=== PATIENT | male | born 1980 | race Caucasian/White ===

== ENCOUNTER 2018-01-17 01:28 | Emergency (ER) | payer OTHER ==
[~2018-01-17] VITALS: Ht 180.3 cm; Wt 85.7 kg
[~2018-01-17 01:28] MED LIST: PENICILLIN VK250 MG PO; PERCOCET PO
[2018-01-17] MEDS ORDERED: AMOXICILLIN 50500 MG PO ×2 (01:39→01:41)
[2018-01-17] MEDS ORDERED: ULTRAM 50MG TAB50 MG PO ×2 (01:39→01:41)
[2018-01-17 01:47] VITALS: BP 126/84
== END 2018-01-17 01:48 | disposition home or self-care (01) ==
LOC: M.ERS 01:28
DX: K02.9 Dental caries, unspecified (principal); F17.210 Nicotine dependence, cigarettes, uncomplicated; Z88.8 Allergy status to other drugs, medicaments and biological substances

== ENCOUNTER 2018-05-14 10:21 | Emergency (ER) | payer OTHER ==
[~2018-05-14] VITALS: Ht 180.3 cm; Wt 83.1 kg
[~2018-05-14 10:21] MED LIST changes: +AMOXICILLIN 50500 MG PO; +ULTRAM 50MG TAB50 MG PO
[2018-05-14] MEDS ORDERED: NEURONTIN 300300 M1 PO (10:43)
[2018-05-14 11:40] LABS: URINE BILIRUBIN NEGATIVE (Negative); URINE BLOOD 3+ (Negative); URINE CLARITY CLEAR; URINE COLOR YELLOW; URINE GLUCOSE-RANDOM NEGATIVE (Negative); URINE KETONES NEGATIVE (Negative); URINE LEUKOCYTES-REFLEX NEGATIVE (Negative); URINE NITRITE-REFLEX NEGATIVE (Negative); URINE PROTEIN TRACE (Negative); URINE SPECIFIC GRAVITY 1.025 (1.005-1.030); URINE UROBILINOGEN 0.2 E.U./dl (0.2-1.0)
[2018-05-14 12:07] LABS: SQUAMOUS 0-3 Few /LPF (0-3); TRANSITIONAL EPITHEL CELL 0-3 Few /LPF (None Seen); URINE RBC 0-2 Rare /HPF (0-2); URINE WBC-REFLEX 0-5 Rare /HPF (0-5)
[2018-05-14 12:08] LABS: BACTERIA-REFLEX 1-9 Few /HPF (None Seen)
[2018-05-14 12:09] LABS: MUCUS 0-3 Light strn/LPF (None Seen)
[2018-05-14 12:11] LABS: CALCIUM OXALATE 0-3 Few /LPF (None Seen)
[2018-05-14] MEDS ORDERED: CIPRO500 MG PO (13:13)
[2018-05-14 13:22] VITALS: BP 128/77
== END 2018-05-14 13:23 | disposition home or self-care (01) ==
LOC: M.ERS 10:21
PROVIDERS: Physician Assistant Surgical
DX: N50.812 Left testicular pain (principal); N50.811 Right testicular pain; N39.0 Urinary tract infection, site not specified; F17.210 Nicotine dependence, cigarettes, uncomplicated; Z88.8 Allergy status to other drugs, medicaments and biological substances

== ENCOUNTER 2018-05-19 07:55 | Emergency (ER) | payer OTHER ==
[~2018-05-19] VITALS: Ht 180.3 cm; Wt 83.9 kg
[~2018-05-19 07:55] MED LIST changes: +CIPRO500 MG PO; +NEURONTIN 300300 M1 PO
[2018-05-19] MEDS ORDERED: IBUPROFEN 200200 M1 PO (08:09)
[2018-05-19 08:22] LABS: URINE BILIRUBIN NEGATIVE (Negative); URINE BLOOD 3+ (Negative); URINE CLARITY CLEAR; URINE COLOR YELLOW; URINE GLUCOSE-RANDOM NEGATIVE (Negative); URINE KETONES NEGATIVE (Negative); URINE LEUKOCYTES-REFLEX NEGATIVE (Negative); URINE NITRITE-REFLEX NEGATIVE (Negative); URINE PROTEIN TRACE (Negative); URINE SPECIFIC GRAVITY >= 1.030 (1.005-1.030)
[2018-05-19 08:29] LABS: CRYSTALS None Seen /LPF (None Seen); SQUAMOUS 4-10 Moderate /LPF (0-3); URINE RBC >20 Many /HPF (0-2); URINE WBC-REFLEX 0-5 Rare /HPF (0-5)
[2018-05-19 08:30] LABS: BACTERIA-REFLEX 1-9 Few /HPF (None Seen); CASTS None Seen /LPF (None Seen); MUCUS 4-6 Moderate strn/LPF (None Seen)
[2018-05-19 08:44] LABS: CALCIUM 8.3 mg/dL (8.5-10.1); POTASSIUM 3.7 mmol/L (3.5-5.1)
[2018-05-19 08:46] LABS: ABSOLUTE BASOPHILS 0.1 thou/uL (0.0-0.2); ABSOLUTE EOSINOPHILS 0.2 thou/uL (0.0-0.7); ABSOLUTE LYMPHOCYTES 2.9 thou/uL (0.8-5.3); ABSOLUTE MONOCYTES 0.8 thou/uL (0.0-1.2); ABSOLUTE NEUTROPHILS 10.7 thou/uL (1.6-8.1); BASOPHILS 0.5 %; EOSINOPHILS 1.1 %; HEMATOCRIT 42.9 % (42.0-52.0); HEMOGLOBIN 14.7 gm/dL (14.0-18.0); LYMPHOCYTES 19.7 %; MCH 32.1 pg (26.0-34.0); MCHC 34.2 g/dL (28.0-37.0); MCV 93.8 fL (80.0-100.0); MONOCYTES 5.7 %; MPV 8.7 fl. (7.2-11.1); NUCLEATED RBCS 0 /100WBC; PLATELET COUNT* 265 thou/uL (150-400); RBC 4.57 mil/uL (4.50-6.00); RDW-CV 13.3 % (10.5-14.5); WBC 14.7 thou/uL (4.0-11.0)
[2018-05-19 08:50] LABS: ALBUMIN 3.5 g/dL (3.4-5.0); TOTAL BILIRUBIN 0.4 mg/dL (<0.1-1.0); TOTAL PROTEIN 7.6 g/dL (6.4-8.2)
[2018-05-19] MEDS ORDERED: HYDROCODON-ACE1 EAC7 PO (09:54)
[2018-05-19] MEDS ORDERED: FLOMAX0.4 MG PO (09:54)
[2018-05-19] MEDS ORDERED: ZOFRAN4 MG PO (09:54)
[2018-05-19 10:13] VITALS: BP 124/74
== END 2018-05-19 10:13 | disposition home or self-care (01) ==
LOC: M.ERS 07:55
PROVIDERS: Emergency Medicine
DX: N20.0 Calculus of kidney (principal); N50.812 Left testicular pain; Z88.8 Allergy status to other drugs, medicaments and biological substances

== ENCOUNTER 2018-05-21 20:02 | Emergency (ER) | payer OTHER ==
[~2018-05-21] VITALS: Ht 182.9 cm; Wt 81.7 kg
[~2018-05-21 20:02] MED LIST changes: +FLOMAX0.4 MG PO; +HYDROCODON-ACE1 EAC7 PO; +IBUPROFEN 200200 M1 PO; +ZOFRAN4 MG PO
[2018-05-21 20:28] LABS: ABSOLUTE BASOPHILS 0.2 thou/uL (0.0-0.2); ABSOLUTE EOSINOPHILS 0.1 thou/uL (0.0-0.7); ABSOLUTE LYMPHOCYTES 2.7 thou/uL (0.8-5.3); ABSOLUTE MONOCYTES 0.6 thou/uL (0.0-1.2); BASOPHILS 1.2 %; EOSINOPHILS 0.4 %; HEMATOCRIT 38.6 % (42.0-52.0); HEMOGLOBIN 13.5 gm/dL (14.0-18.0); LYMPHOCYTES 16.5 %; MCH 32.2 pg (26.0-34.0); MCHC 34.9 g/dL (28.0-37.0); MCV 92.2 fL (80.0-100.0); MONOCYTES 3.7 %; MPV 8.4 fl. (7.2-11.1); NUCLEATED RBCS 0 /100WBC; PLATELET COUNT* 267 thou/uL (150-400); POLYS 78.2 %; RBC 4.18 mil/uL (4.50-6.00); RDW-CV 13.2 % (10.5-14.5); WBC 16.6 thou/uL (4.0-11.0)
[2018-05-21 20:33] LABS: ANION GAP 10 mmol/L (7-16); BUN 15 mg/dL (7-18); CALCIUM 8.8 mg/dL (8.5-10.1); CHLORIDE 102 mmol/L (98-107); CO2 24 mmol/L (21-32); GLUCOSE 148 mg/dL (70-99); POTASSIUM 3.4 mmol/L (3.5-5.1); SODIUM 136 mmol/L (136-145)
[2018-05-21 20:37] LABS: APTT 29.4 Seconds (25.0-31.3); INR 1.1; PROTIME 10.4 Seconds (9.20-11.50)
[2018-05-21 20:47] LABS: ALBUMIN 3.8 g/dL (3.4-5.0); ALKALINE PHOSPHATASE 83 U/L (46-116); NT-PRO BRAIN NAT PEPTIDE 134 pg/mL (<300); SGOT 34 U/L (15-37); SGPT 60 U/L (30-65); TOTAL BILIRUBIN 0.8 mg/dL (<0.1-1.0); TOTAL PROTEIN 7.8 g/dL (6.4-8.2); TROPONIN-I LEVEL <0.06 ng/mL (<0.06)
[2018-05-21 21:31] LABS: URINE BILIRUBIN NEGATIVE (Negative); URINE BLOOD 1+ (Negative); URINE CLARITY CLEAR; URINE COLOR YELLOW; URINE GLUCOSE-RANDOM NEGATIVE (Negative); URINE KETONES NEGATIVE (Negative); URINE LEUKOCYTES-REFLEX NEGATIVE (Negative); URINE NITRITE-REFLEX NEGATIVE (Negative); URINE PROTEIN NEGATIVE (Negative); URINE SPECIFIC GRAVITY <= 1.005 (1.005-1.030); URINE UROBILINOGEN 0.2 E.U./dl (0.2-1.0)
[2018-05-21 21:40] LABS: AMP/METHAMP Negative (Negative); BARBITURATES Negative (Negative); BENZODIAZEPINES Negative (Negative); COCAINE Negative (Negative); METHADONE Negative (Negative); OPIATES POSITIVE (Negative); PCP Negative (Negative); THC Negative (Negative)
[2018-05-21 22:11] LABS: BACTERIA-REFLEX None Seen /HPF (None Seen); CASTS None Seen /LPF (None Seen); CRYSTALS None Seen /LPF (None Seen); SQUAMOUS 0-3 Few /LPF (0-3); URINE RBC 3-10 Few /HPF (0-2); URINE WBC-REFLEX None Seen /HPF (0-5)
[2018-05-21 22:15] VITALS: BP 110/55
--- NOTE | 2018-05-22 15:55 | EKG ---
[place] [address] ELECTROCARDIOGRAM REPORT Name: ANA PETTYDELIA Room: [facility]#: [id number] Admission: 05/21/18 Attend Phys: Discharge: 05/21/18 Date of : 78 Report #: [id number] THIS REPORT FOR: //name// [facility] ED Test Date: 2018-05-21 Test Time: 20:27:15 Pat Name: DELIA ZAPIEN Department: Room: Gender: M [employer] Supervisor: CT : 1980 Requested By: Jorge Chaves Order Number: [id number] MD: Ronni Staley Measurements Intervals [place] Rate: 94 P: 57 UT: 154 QRS: 59 QRSD: 100 T: 52 QT: 356 QTc: 446 Interpretive Statements Sinus rhythm RSR' in V1 or V2, probably normal variant No previous ECG available for comparison Electronically Signed On 05-22-2018 15:55:08 CDT by Ronni Staley [email or web address] <ELECTRONICALLY SIGNED> By: Ronni Staley MD, [facility] 05/22/18 1555 26 26 Ronni Staley MD, FACC /EPI
== END 2018-05-21 22:18 | disposition home or self-care (01) ==
LOC: M.ERS 20:02
PROVIDERS: Family Medicine
DX: R42 Dizziness and giddiness (principal); Z88.8 Allergy status to other drugs, medicaments and biological substances; Z87.442 Personal history of urinary calculi; Z79.899 Other long term (current) drug therapy